=== PATIENT | male | born 1950 | race Caucasian/White ===

== ENCOUNTER 2016-04-26 10:09 | Inpatient (IN) | payer MEDICARE ==
--- NOTE | ~2016-04-26 | DS ---
Discharge Summary [facility] [address] [place]. [address] NAME: QUYNH ARAIZA : 50 STATUS : DIS IN PAT#: [id number] AGE: 66 ADM/REG DATE : 04/26/16 MR#: [id number] REPORT SERV DATE: 05/02/16 DICTATED BY: SCOOTER SIMMS DATE: 05/01/16 REPORT STATUS : Draft TRANSCRIBED BY: MODL DATE: 05/01/16 ADMISSION DATE: 04/26/2016 DISCHARGE DATE: 05/01/2016 DISCHARGE DIAGNOSES: 1. Left upper lobe pneumonia, currently resolved. 2. Chronic systolic congestive heart failure with an acute component, currently stable. 3. Atrial fibrillation. 4. Nonischemic cardiomyopathy. 5. An automatic implantable cardioverter defibrillator in the past. 6. Homelessness. 7. Persistent alcohol abuse, currently without delirium tremens. 8. Hypertension. 9. Peripheral neuropathy. CONSULTANTS DURING THIS HOSPITALIZATION: Yfn Cedeno M.D. of Cardiology. INVASIVE PROCEDURES DONE DURING THIS HOSPITALIZATION: None. BRIEF HISTORY OF PRESENT ILLNESS: The patient is a 66-year-old male who has been homeless, living in a hotel. He actually went to [place] initially, he was diagnosed with pneumonia and discharged with oral Levaquin. He presented to [facility] via ambulance with cough, sputum that had blood contained within it, chills, sweats, so he was admitted. For detailed history and physical exam, please see note dictated by Dr. Chelsea Villavicencio on 04/26/2016. HOSPITAL COURSE: After being admitted to the hospital, this patient was cared for by Dr. Loni Reyes and this patient was started on IV antibiotics. Blood cultures were done, which remained negative. For his alcohol abuse, he was given withdrawal prophylaxis and Cardiology was also consulted because of his nonischemic cardiomyopathy with ICD placed in [place]. We continued to monitor him. He continued to improve his overall lung functions. He is now off oxygen. Initially on the day of admission, he had an ABG with a pH of 7.47, pCO2 was 28, and PO2 was 67 that has since improved and he is now off oxygen. His lab work has remained fairly benign. His glucose is 113 today. His creatinine is 0.75 on the day of discharge. His white count has normalized to 5.6. His hemoglobin and hematocrit remained stable as well. Cardiology has recommended that he could be discharged from a medical standpoint, his medications were adjusted, and he will need bri medications from the hospital prior to discharge. This patient will also be seen by Case Management for arrangement of a place to live after being discharged from the hospital. DISCHARGE DISPOSITION: To the [facility]. DISCHARGE ACTIVITY: As tolerated. DISCHARGE DIET: Low-sodium, cardiac diet. DISCHARGE MEDICATIONS: Aspirin 162 mg once daily, digoxin 0.25 mg once daily, gabapentin 300 Discharge Summary [address] [address] NAME: QUYNH ARAIZA : 50 STATUS : DIS IN PAT#: [id number] AGE: 66 ADM/REG DATE : 04/26/16 MR#: [id number] REPORT SERV DATE: 05/02/16 DICTATED BY: SCOOTER SIMMS DATE: 05/01/16 REPORT STATUS : Draft TRANSCRIBED BY: JULIANN DATE: 05/01/16 mg p.o. twice daily, Coreg 6.25 mg twice daily, Omnicef 300 mg p.o. twice daily for two more days, multivitamins one tablet daily, Xarelto 20 mg once daily, lisinopril 5 mg once daily, torsemide 10 mg once daily, and iron 325 mg p.o. once daily. DISCHARGE FOLLOWUP: At [facility] in two to three weeks. More than 30 minutes spent planning this patient's discharge, reconciling medications, writing prescriptions, discussing the care with the patient, arranging proper discharge, and documenting this discharge. ROBERTO/JULIANN Scooter Simms M.D. / [id number] CC: Aryan Natarajan M.D.
--- NOTE | ~2016-04-26 | CN ---
Consultation Report [place] [id number] [facility]. [address] NAME: QUYNH BUNDY : 50 STATUS : ADM IN [facility]#: [id number] AGE: 66 ADM/REG DATE : 04/26/16 MR#: [id number] REPORT SERV DATE: 04/27/16 DICTATED BY: YFN GRANDA DATE: 04/27/16 REPORT STATUS : Draft TRANSCRIBED BY: MODL DATE: 04/27/16 CARDIOVASCULAR CONSULTATION DATE OF CONSULTATION: This cardiovascular consultation requested by Dr. Chelsea Villavicencio. INDICATION: Congestive heart failure. HISTORY OF PRESENT ILLNESS: Mr. Bundy is a 66-year-old man with a longstanding history of medical noncompliance, alcohol abuse, and homelessness. He evidently has a nonischemic cardiomyopathy and has previously been followed in [place] and at [facility]. He had an ICD placed by his report in [place] several years ago. He ran out of medications several weeks ago. He appears to have atrial fibrillation presumably chronic in addition to congestive heart failure in the setting of LV systolic dysfunction. He is admitted with worsening dyspnea, cough, possible pneumonia on chest x-ray, and elevated BNP of greater than 2000. PAST MEDICAL HISTORY: 1. Alcohol abuse. 2. Homelessness. 3. Medical noncompliance. 4. Presumed chronic atrial fibrillation. 5. Nonischemic cardiomyopathy. ALLERGIES: INCLUDE PENICILLIN. MEDICATIONS: Uncertain. It appears at one point he was on Xarelto perhaps, diltiazem, torsemide, and digoxin as well as an aspirin. He has not been taking any of these medicines for several weeks. SOCIAL HISTORY: He is homeless. He continues to drink alcohol. He does smoke cigarettes. FAMILY HISTORY: Family history is uncertain. REVIEW OF SYSTEMS: A complete review of systems was obtained, which is negative in detail except as mentioned above in the HPI. PHYSICAL EXAMINATION: VITAL SIGNS: Blood pressure 110/70, heart rate of 92 and irregular, respiratory rate of 14. GENERAL: Comfortable in no acute distress. HEENT: Anicteric. No xanthelasma. Lips without cyanosis. NECK: No JVD. Carotids 2+ and symmetric. No carotid bruits. LUNGS: CTA bilaterally. No wheezes or rhonchi. No accessory muscle use. Consultation Report [place] [address] [facility] [place]. [address] NAME: QUYNH BUNDY : 50 STATUS : ADM IN PAT#: [id number] AGE: 66 ADM/REG DATE : 04/26/16 MR#: [id number] REPORT SERV DATE: 04/27/16 DICTATED BY: YFN GRANDA DATE: 04/27/16 REPORT STATUS : Draft TRANSCRIBED BY: MODGertrude DATE: 04/27/16 COR: RRR. Normally placed PMI. Normal S1 and S2. No murmurs, rubs or gallops. ABD: Soft, nontender, nondistended. Normal bowel sounds. No abdominal bruits. EXT: No clubbing, cyanosis or edema 2+ and symmetric distal pulses. SKIN: Warm. Dry. No venous stasis changes. MS: No kyphosis. NEURO/PSYCH: Oriented x3. No anxiety or depression. DATA: EK-lead EKG shows underlying atrial fibrillation with ventricular pacing at 90 beats per minute. Laboratory studies: White count of 7.4, hematocrit of 40, creatinine of 1.15. BNP of 2173. Troponin of 0.04. IMPRESSION: This is a 66-year-old homeless man with a history of a nonischemic cardiomyopathy and defibrillator placed at outside facility, who presents with volume overload in the setting of acute on chronic systolic congestive heart failure, atrial fibrillation with rapid ventricular rate, possible pneumonia, bilateral pleural effusions. I have recommended IV Lasix diuresis. We will try to adjust his medications in-house and consider an echocardiogram and assessment of his defibrillator while in the hospital. Long- term prognosis is poor given his social situation and noncompliance. APURVA/UJLIANN Yfn Granda M.D. / [id number] CC: Loni Reyes M.D.
--- NOTE | ~2016-04-26 | HP ---
History And Physical [place] [id number] [facility] [place]. [address] NAME: QUYNH ARAIZA : 50 STATUS : ADM IN PAT#: [id number] AGE: 66 ADM/REG DATE : 04/26/16 MR#: [id number] REPORT SERV DATE: 04/26/16 DICTATED BY: BRUNO RIGGS DATE: 04/26/16 REPORT STATUS : Draft TRANSCRIBED BY: MODGertrude DATE: 04/26/16 DATE OF ADMISSION: 04/26/2016 CHIEF COMPLAINT: Shortness of breath. HISTORY OF PRESENT ILLNESS: The patient is a very pleasant 66-year-old white male. He states he has been sick since about Friday. He actually went to [place] yesterday. He was diagnosed with pneumonia and discharged with Levaquin. He is currently homeless, residing in a hotel. He states today he woke up in extremis. He could not breathe actually, had an ambulance called and arrived to [facility] Emergency Department. He denies chest pain, but he states he has had cough with sputum which had blood contained within it. He has not had chills or sweats or documented fever but he does not take his temperature. He states his shortness of breath was worse with lying flat and he just could not get his breath this morning. He received some diuresis in the ER with a rapid improvement and stabilization. He also received a Cardizem drip. He has been in and out of the hospital over many years. He was just in the hospital he states about 3 to 6 months ago with pneumonia. He drinks heavily sometimes 3 to 4 sixteen ounce beers plus a half pint whiskey. He has had alcohol withdrawal in the past but no delirium. He has been admitted to multiple different hospitals but it does not appear that he has been admitted here in the past. He has a history of an AICD and pacemaker but reports he had a cath which did not show any coronary artery disease. He does not recall the exact details of this. PAST MEDICAL HISTORY: 1. Nonischemic cardiomyopathy with unknown EF. 2. EtOH abuse. 3. Defibrillator pacemaker. 4. Cardiac arrest with defibrillator subsequently in place. 5. Atrial fibrillation, on chronic anticoagulation. 6. Hypertension. 7. Peripheral neuropathy. 8. Alcohol withdrawal. ALLERGIES: PENICILLIN. SOCIAL HISTORY: He does not smoke but he drinks 3 to 4 sixteen ounce beers a day and sometimes a half pint of whiskey. He states "he drinks too much". He is retired. He is homeless. PAST SURGICAL HISTORY: He has had multiple orthopedic surgeries but no open heart surgery. He has had an AICD and pacer and he has had no abdominal surgeries. HOME MEDICATIONS: Reviewed but he has not taken them in over a week. REVIEW OF SYSTEMS: Full 10-point review of systems obtained with pertinent positives mentioned in the HPI. History And Physical [address] [address] NAME: QUYNH ARAIZA : 50 STATUS : ADM IN [facility]#: [id number] AGE: 66 ADM/REG DATE : 04/26/16 MR#: [id number] REPORT SERV DATE: 04/26/16 DICTATED BY: BRUNO RIGGS DATE: 04/26/16 REPORT STATUS : Draft TRANSCRIBED BY: JULIANN DATE: 04/26/16 PHYSICAL EXAMINATION: VITAL SIGNS: Current vital signs are blood pressure 118/77, sats are 98%, pulse is 103, and his respiratory rate is currently 20. His temperature on admission was 98.1, heart rate on admission was 147. GENERAL: Well-developed white male, in no apparent distress. HEENT: With an obvious tanned appearance. HEENT: Normocephalic, atraumatic. Throat is clear. NECK: Supple. HEART: Irregular. LUNGS: He has crackles at the left base. He has an occasional rhonchorous breath sounds but otherwise he is clear. ABDOMEN: Soft, nontender, and nondistended. EXTREMITIES: Warm and dry. He has no peripheral edema. SKIN: Intact without rashes or lesions although he does have some telangiectasias scattered about. NEUROLOGIC: He is alert. He is oriented to person, place, and time. He does not have a tremor. He moves all four extremities symmetrically. LAB DATA: H and H are 13 and 39, white count 7.4, platelets 233, coags are normal. Flu swab is negative. ABG 7.47/28/. Lactate is 3.2. BNP is 2173. Chemistry panel: Sodium is 137, potassium 4.2, chloride 100, CO2 of 23, BUN and creatinine 17 and 1.15. Glucose 114. LFTs are normal. Troponin is 0.04. Mag is 2.1. TSH is 3.620. CTA of the chest shows no PE. Left upper lobe airspace disease consistent with pneumonia. Moderate right posterior pleural effusion and small left posterior pleural effusion with some compressive atelectasis and changes consistent with COPD. Chest x-ray shows a small right pleural effusion. Right lower lobe atelectasis in the left mid lung airspace disease. He also has an EKG consistent with atrial fibrillation with RVR. ASSESSMENT/PLAN: 1. Atrial fibrillation with RVR. Dramatic improvement with Cardizem drip. We will continue this, restart him on a p.o. rate slowing agent, I am going to give him metoprolol given that he has a history of congestive heart failure. We will start with Toprol-XL 25 daily. We will continue his Cardizem drip for now. We will continue his digoxin. He has not been taking it and this may be responsible for some of his RVR. Hopefully we can get him off the drip once he is started on the beta dawson. He needs his Xarelto; however, he has had some hemoptysis over the last 24 hours. I am going to hold his Xarelto overnight and likely restart it tomorrow if he does not have any additional hemoptysis. We will do two more sets of cardiac enzymes. Continue rate control measures. 2. Congestive heart failure exacerbation as evidenced by elevated cardiac BNP. Orthopnea, PND, and pleural effusions bilaterally likely secondary to noncompliance with medical regimen, atrial fibrillation with RVR uncontrolled rate likely exacerbated his heart failure. We would recommend diuresis, start him on a beta-dawson, and low-dose MORGAN inhibitor. Control his heart rate and attempt to diurese him. 3. Pneumonia diagnosed on CT. This is likely responsible for his hemoptysis. He has been sick for a few days. He has been on Levaquin however for two days and his white count is actually normal. His procalcitonin looks good although he does have an elevated History And Physical [address] [address] NAME: QUYNH ARAIZA : 50 STATUS : ADM IN [facility]#: [id number] AGE: 66 ADM/REG DATE : 04/26/16 MR#: [id number] REPORT SERV DATE: 04/26/16 DICTATED BY: BRUNO RIGGS DATE: 04/26/16 REPORT STATUS : Draft TRANSCRIBED BY: JULIANN DATE: 04/26/16 lactic acid. We would recommend treating him with antibiotics for community-acquired pneumonia to include Rocephin and azithromycin, but also cover him for aspiration since he has had some vomiting. He has a long-standing history also of alcohol abuse. We will culture his blood and sputum. Follow him clinically and go from there. 4. COPD. We will add some nebs to his regimen although he is not really wheezing today. I think in light of the pneumonia, we ought to treat him with bronchodilator therapy. 5. EtOH abuse. History of withdrawal. We will place him on the ETOH withdrawal protocol. We will provide IV thiamine and Ativan as needed and follow the CIWA scores. 6. History of nonischemic cardiomyopathy. Please see #1 with CHF. 7. History of defibrillator and pacemaker. 8. History of noncompliance. He is not compliant with his medical regimen. He says "someone "stole his medications. He needs to get back on his medications; if he had a more stable living environment, I suspect this would be easier. 9. Deep venous thrombosis prophylaxis. Hold off until we are sure that he is not bleeding plus he is on Xarelto. 10.Hemoptysis. See numbers above. Again, holding his Xarelto overnight likely due to pneumonia. We will do a PPD just for completeness. 11.Disposition pending above. MISHA/JULIANN Bruno Riggs M.D. / [id number] CC: Bruno Riggs M.D.
[2016-04-26 09:28] LABS: BASOPHILS 0.4 %; BASOPHILS ABSOLUTE 0.03 10/3/uL (0.0-0.16); EOSINOPHILS 0.1 %; EOSINOPHILS ABSOLUTE 0.01 10/3/uL (0.0-0.53); HEMATOCRIT 39.8 % (40.0-51.0); HEMOGLOBIN 13.3 g/dL (13.6-17.8); IMMATURE GRANULOCYTES 0.3 %; IMMATURE GRANULOCYTES ABSOLUTE 0.02 10/3/uL (0.0-0.11); LYMPHOCYTES 19.3 %; LYMPHOCYTES ABSOLUTE 1.42 10/3/uL (0.67-4.30); MANUAL DIFF NO %; MEAN CORPUS HGB CONC 33.4 g/dL (32.0-36.0); MEAN CORPUSCULAR HEMOGLOB 32.6 pg (26.0-34.0); MEAN CORPUSCULAR VOLUME 97.5 fL (80-100); MEAN PLATELET VOLUME 10.7 fL (9.2-13.0); MONOCYTES 12.6 %; MONOCYTES ABSOLUTE 0.93 10/3/uL (0.21-1.20); NEUTROPHILS 67.3 %; NEUTROPHILS ABSOLUTE 4.96 10/3/uL (2.02-8.40); PLATELET COUNT 233 10/3/uL (150-400); RBC DISTRIBUTION WIDTH 17.8 % (12.0-16.0); RED CELL COUNT 4.08 10/6/uL (4.7-6.1); WHITE BLOOD CELLS 7.4 10/3/uL (4.5-10.5)
[2016-04-26 09:36] LABS: INTERNATIONAL NORMAL RATI 1.7 UNITS (-); PROTIME (NOT ORD) 19.5 SEC (12.0-14.5)
[2016-04-26 09:38] LABS: INFLUENZA A SCREEN NEGATIVE (NEGATIVE); INFLUENZA B SCREEN NEGATIVE (NEGATIVE)
[2016-04-26 09:39] LABS: ALLENS TEST Pos; BE (BASE EXCESS) -2.4 MEQ/L (0 +/- 2.5); HCO3 (ACTUAL BICARBONATE) 19.9 MEQ/L (23-27); HEMOBLOGIN CONTENT 13.1 G/DL (14-18); INSTRUMENT SERIAL # 8087; METHEMOGLOBIN 0.3 % (0-3); O2 CONTENT 16.8 VOL% (18-24); OPERATOR ID 14335; PCO2 (CO2 TENSION) 28 MMHG (35-45); PO2 (O2 TENSION) 67 MMHG (79-93); SAMPLE Arterial; pH 7.47 (7.37-7.43)
[2016-04-26 09:48] LABS: LACTATE 3.2 MMOL/L (0.3-2.4)
[2016-04-26 09:50] LABS: CALCIUM, SERUM 8.5 MG/DL (8.5-10.4); CHEST PAIN PROFILE TAT 0 Hrs 28 Mins; CHLORIDE, SERUM 102 MMOL/L (96-112); POTASSIUM, SERUM 4.2 MMOL/L (3.5-5.3); SODIUM, SERUM 137 MMOL/L (135-148); TROPONIN I 0.04 NG/ML (<0.05)
[2016-04-26 09:52] LABS: BUN (BLOOD UREA NITROGEN) 17 MG/DL (6-23); CO2 (CARBON DIOXIDE) 23 MMOL/L (24-34); CREATININE 1.15 MG/DL (0.70-1.30); GFR AFRICAN AMERICAN 76 ML/MIN (>=60); GFR NON AFRICAN AMERICAN 66 ML/MIN (>=60); GLUCOSE, SERUM 114 MG/DL (60-99)
[~2016-04-26 10:09] MED LIST: CARDCD120 PO; DEMA10T PO; FERROUS SULF325 M1 PO; HALF81 PO; LAN25 PO; LEVAQUIN750 MG PO; NEUR300 PO; POTASSIUM; XARELTO20 MG PO
[2016-04-26 10:29] LABS: PROCALCITONIN 0.05 ng/mL (<0.5)
[2016-04-27 07:50] LABS: BASOPHILS 0 %; EOSINOPHILS 0 %; HEMATOCRIT 36.2 % (40.0-51.0); HEMOGLOBIN 12.4 g/dL (13.6-17.8); IMMATURE GRANULOCYTES 0.1 %; IMMATURE GRANULOCYTES ABSOLUTE 0.01 10/3/uL (0.0-0.11); LYMPHOCYTES 9.9 %; LYMPHOCYTES ABSOLUTE 0.82 10/3/uL (0.67-4.30); MEAN CORPUS HGB CONC 34.3 g/dL (32.0-36.0); MEAN CORPUSCULAR HEMOGLOB 32.7 pg (26.0-34.0); MEAN CORPUSCULAR VOLUME 95.5 fL (80-100); MEAN PLATELET VOLUME 10.6 fL (9.2-13.0); MONOCYTES 11.7 %; MONOCYTES ABSOLUTE 0.97 10/3/uL (0.21-1.20); NEUTROPHILS 78.3 %; NEUTROPHILS ABSOLUTE 6.49 10/3/uL (2.02-8.40); PLATELET COUNT 220 10/3/uL (150-400); RBC DISTRIBUTION WIDTH 17.9 % (12.0-16.0); RED CELL COUNT 3.79 10/6/uL (4.7-6.1); WHITE BLOOD CELLS 8.3 10/3/uL (4.5-10.5)
[2016-04-27 07:51] LABS: MANUAL DIFF NO %
[2016-04-27 08:14] LABS: BUN (BLOOD UREA NITROGEN) 16 MG/DL (6-23); CALCIUM, SERUM 8.2 MG/DL (8.5-10.4); CHLORIDE, SERUM 104 MMOL/L (96-112); CO2 (CARBON DIOXIDE) 25 MMOL/L (24-34); CREATININE 0.84 MG/DL (0.70-1.30); GFR AFRICAN AMERICAN 106 ML/MIN (>=60); GFR NON AFRICAN AMERICAN 91 ML/MIN (>=60); GLUCOSE, SERUM 133 MG/DL (60-99); POTASSIUM, SERUM 3.7 MMOL/L (3.5-5.3); SODIUM, SERUM 139 MMOL/L (135-148); TROPONIN I 0.04 NG/ML (<0.05)
[2016-04-27 13:27] LABS: DIGOXIN < 0.1 NG/ML (0.8-2.0); FOLATE 18.3 NG/ML (>5.2)
[2016-04-28 05:24] LABS: BASOPHILS 0.4 %; BASOPHILS ABSOLUTE 0.03 10/3/uL (0.0-0.16); EOSINOPHILS 0.7 %; EOSINOPHILS ABSOLUTE 0.05 10/3/uL (0.0-0.53); HEMATOCRIT 38.8 % (40.0-51.0); HEMOGLOBIN 12.6 g/dL (13.6-17.8); LYMPHOCYTES 24.2 %; LYMPHOCYTES ABSOLUTE 1.67 10/3/uL (0.67-4.30); MANUAL DIFF NO %; MEAN CORPUS HGB CONC 32.5 g/dL (32.0-36.0); MEAN CORPUSCULAR HEMOGLOB 31.7 pg (26.0-34.0); MEAN CORPUSCULAR VOLUME 97.7 fL (80-100); MEAN PLATELET VOLUME 10.7 fL (9.2-13.0); MONOCYTES 10.4 %; MONOCYTES ABSOLUTE 0.72 10/3/uL (0.21-1.20); NEUTROPHILS 64.3 %; NEUTROPHILS ABSOLUTE 4.42 10/3/uL (2.02-8.40); PLATELET COUNT 192 10/3/uL (150-400); RBC DISTRIBUTION WIDTH 17.9 % (12.0-16.0); RED CELL COUNT 3.97 10/6/uL (4.7-6.1); WHITE BLOOD CELLS 6.9 10/3/uL (4.5-10.5)
[2016-04-28 05:40] LABS: ALBUMIN 2.9 G/DL (3.5-5.0); ALKALINE PHOSPHATASE 91 U/L (45-117); CALCIUM, SERUM 7.9 MG/DL (8.5-10.4); CHLORIDE, SERUM 103 MMOL/L (96-112); CO2 (CARBON DIOXIDE) 28 MMOL/L (24-34); CREATININE 0.86 MG/DL (0.70-1.30); GFR AFRICAN AMERICAN 105 ML/MIN (>=60); GFR NON AFRICAN AMERICAN 90 ML/MIN (>=60); GLOBULIN 2.8 G/DL (2.5-4.1); POTASSIUM, SERUM 3.5 MMOL/L (3.5-5.3); SGOT(AST) 108 U/L (5-40); SGPT(ALT) 93 U/L (5-65); SODIUM, SERUM 141 MMOL/L (135-148); TOTAL BILIRUBIN 0.7 MG/DL (0-1.2); TOTAL PROTEIN 5.7 G/DL (6.0-8.5)
[2016-04-28 05:43] LABS: BUN (BLOOD UREA NITROGEN) 21 MG/DL (6-23); GLUCOSE, SERUM 105 MG/DL (60-99)
[2016-04-28 14:58] LABS: ASCORBIC ACID (UR NOT ORDER) NEG (NEG); BILIRUBIN, URINE NEGATIVE (NEG); KETONE, URINE NEGATIVE (NEG); LEUKOCYTE ESTERASE(NOT OR NEG (NEG); WBC (NOT ORDERED) (RFLEX) < 1 (0-5)
[2016-04-29] MEDS ORDERED: THERGRANM PO (08:09)
[2016-04-29] MEDS ORDERED: B1100 PO (08:12)
[2016-04-29 08:54] LABS: HEPATITIS B SURFACE ANTIGEN NON-REACTIVE (NON-REACT)
[2016-04-29 09:11] LABS: HEPATITIS C ANTIBODY NON-REACTIVE (NON-REACT)
[2016-04-29 09:12] LABS: HEPATITIS B CORE AB IGM NON-REACTIVE (NON-REAC)
[2016-04-29 09:13] LABS: HEP A ANTIBODY IGM NON-REACTIVE (NON-REACT)
[2016-04-29 10:40] LABS: BASOPHILS 1.1 %; BASOPHILS ABSOLUTE 0.06 10/3/uL (0.0-0.16); EOSINOPHILS 3.2 %; EOSINOPHILS ABSOLUTE 0.17 10/3/uL (0.0-0.53); HEMOGLOBIN 14.6 g/dL (13.6-17.8); IMMATURE GRANULOCYTES 0.2 %; IMMATURE GRANULOCYTES ABSOLUTE 0.01 10/3/uL (0.0-0.11); LYMPHOCYTES 27.7 %; LYMPHOCYTES ABSOLUTE 1.48 10/3/uL (0.67-4.30); MANUAL DIFF NO %; MEAN CORPUS HGB CONC 33.2 g/dL (32.0-36.0); MEAN CORPUSCULAR HEMOGLOB 32.4 pg (26.0-34.0); MEAN CORPUSCULAR VOLUME 97.8 fL (80-100); MEAN PLATELET VOLUME 10.6 fL (9.2-13.0); MONOCYTES ABSOLUTE 0.48 10/3/uL (0.21-1.20); NEUTROPHILS 58.8 %; NEUTROPHILS ABSOLUTE 3.15 10/3/uL (2.02-8.40); PLATELET COUNT 202 10/3/uL (150-400); RBC DISTRIBUTION WIDTH 17.3 % (12.0-16.0); WHITE BLOOD CELLS 5.4 10/3/uL (4.5-10.5)
[2016-04-29 11:20] LABS: ALBUMIN 3.1 G/DL (3.5-5.0); ALKALINE PHOSPHATASE 89 U/L (45-117); BUN (BLOOD UREA NITROGEN) 22 MG/DL (6-23); CALCIUM, SERUM 8.4 MG/DL (8.5-10.4); CHLORIDE, SERUM 101 MMOL/L (96-112); CO2 (CARBON DIOXIDE) 30 MMOL/L (24-34); GFR AFRICAN AMERICAN 103 ML/MIN (>=60); GFR NON AFRICAN AMERICAN 89 ML/MIN (>=60); GLOBULIN 3.1 G/DL (2.5-4.1); POTASSIUM, SERUM 3.6 MMOL/L (3.5-5.3); SGOT(AST) 105 U/L (5-40); SGPT(ALT) 98 U/L (5-65); SODIUM, SERUM 140 MMOL/L (135-148); TOTAL BILIRUBIN 0.8 MG/DL (0-1.2); TOTAL PROTEIN 6.2 G/DL (6.0-8.5)
[2016-04-29 11:21] LABS: GLUCOSE, SERUM 143 MG/DL (60-99)
[2016-04-29 12:49] LABS: BASOPHILS 0.8 %; BASOPHILS ABSOLUTE 0.05 10/3/uL (0.0-0.16); EOSINOPHILS 3.2 %; EOSINOPHILS ABSOLUTE 0.21 10/3/uL (0.0-0.53); HEMATOCRIT 41.4 % (40.0-51.0); HEMOGLOBIN 13.9 g/dL (13.6-17.8); IMMATURE GRANULOCYTES 0.2 %; IMMATURE GRANULOCYTES ABSOLUTE 0.01 10/3/uL (0.0-0.11); LYMPHOCYTES 21.6 %; LYMPHOCYTES ABSOLUTE 1.43 10/3/uL (0.67-4.30); MEAN CORPUS HGB CONC 33.6 g/dL (32.0-36.0); MEAN CORPUSCULAR HEMOGLOB 32.8 pg (26.0-34.0); MEAN CORPUSCULAR VOLUME 97.6 fL (80-100); MEAN PLATELET VOLUME 10.1 fL (9.2-13.0); MONOCYTES 13.6 %; NEUTROPHILS 60.6 %; NEUTROPHILS ABSOLUTE 4.02 10/3/uL (2.02-8.40); PLATELET COUNT 229 10/3/uL (150-400); RBC DISTRIBUTION WIDTH 17.2 % (12.0-16.0); RED CELL COUNT 4.24 10/6/uL (4.7-6.1); WHITE BLOOD CELLS 6.6 10/3/uL (4.5-10.5)
[2016-04-29 12:50] LABS: MANUAL DIFF NO %
[2016-04-29 13:04] LABS: A/G RATIO 0.9 (0.7-1.9); ALBUMIN 2.8 G/DL (3.5-5.0); ALKALINE PHOSPHATASE 88 U/L (45-117); BUN (BLOOD UREA NITROGEN) 22 MG/DL (6-23); CHLORIDE, SERUM 103 MMOL/L (96-112); CO2 (CARBON DIOXIDE) 33 MMOL/L (24-34); CREATININE 0.79 MG/DL (0.70-1.30); GFR AFRICAN AMERICAN 108 ML/MIN (>=60); GFR NON AFRICAN AMERICAN 94 ML/MIN (>=60); GLUCOSE, SERUM 96 MG/DL (60-99); POTASSIUM, SERUM 3.8 MMOL/L (3.5-5.3); SGOT(AST) 96 U/L (5-40); SGPT(ALT) 92 U/L (5-65); SODIUM, SERUM 142 MMOL/L (135-148); TOTAL BILIRUBIN 0.7 MG/DL (0-1.2); TOTAL PROTEIN 5.8 G/DL (6.0-8.5)
[2016-04-30 04:28] LABS: BASOPHILS 0.7 %; BASOPHILS ABSOLUTE 0.04 10/3/uL (0.0-0.16); EOSINOPHILS ABSOLUTE 0.28 10/3/uL (0.0-0.53); HEMATOCRIT 43.6 % (40.0-51.0); HEMOGLOBIN 14.5 g/dL (13.6-17.8); LYMPHOCYTES 34.8 %; LYMPHOCYTES ABSOLUTE 1.95 10/3/uL (0.67-4.30); MEAN CORPUS HGB CONC 33.3 g/dL (32.0-36.0); MEAN CORPUSCULAR HEMOGLOB 32.5 pg (26.0-34.0); MEAN CORPUSCULAR VOLUME 97.8 fL (80-100); MEAN PLATELET VOLUME 10.4 fL (9.2-13.0); MONOCYTES 12.3 %; MONOCYTES ABSOLUTE 0.69 10/3/uL (0.21-1.20); NEUTROPHILS 47.2 %; NEUTROPHILS ABSOLUTE 2.65 10/3/uL (2.02-8.40); PLATELET COUNT 248 10/3/uL (150-400); RBC DISTRIBUTION WIDTH 16.9 % (12.0-16.0); RED CELL COUNT 4.46 10/6/uL (4.7-6.1); WHITE BLOOD CELLS 5.6 10/3/uL (4.5-10.5)
[2016-04-30 04:29] LABS: MANUAL DIFF NO %
[2016-04-30 04:40] LABS: ALBUMIN 2.9 G/DL (3.5-5.0); ALKALINE PHOSPHATASE 86 U/L (45-117); BUN (BLOOD UREA NITROGEN) 20 MG/DL (6-23); CALCIUM, SERUM 8.4 MG/DL (8.5-10.4); CHLORIDE, SERUM 102 MMOL/L (96-112); CO2 (CARBON DIOXIDE) 32 MMOL/L (24-34); CREATININE 0.75 MG/DL (0.70-1.30); DIRECT BILIRUBIN 0.2 MG/DL (0.0-0.4); GFR AFRICAN AMERICAN 111 ML/MIN (>=60); GFR NON AFRICAN AMERICAN 96 ML/MIN (>=60); GLUCOSE, SERUM 113 MG/DL (60-99); INDIRECT BILIRUBIN(NOT ORDER) 0.5 MG/DL (0.1-0.9); POTASSIUM, SERUM 4.2 MMOL/L (3.5-5.3); SGOT(AST) 94 U/L (5-40); SGPT(ALT) 93 U/L (5-65); SODIUM, SERUM 141 MMOL/L (135-148); TOTAL BILIRUBIN 0.7 MG/DL (0-1.2); TOTAL PROTEIN 5.8 G/DL (6.0-8.5)
[2016-05-01] MEDS ORDERED: OMNICEF300 PO (13:11)
[2016-05-01] MEDS ORDERED: COREG6 PO (13:11)
[2016-05-01] MEDS ORDERED: PRIN5 PO (13:12)
[2016-09-05] MEDS ORDERED: COREG6 PO (22:48)
[2016-09-05] MEDS ORDERED: ASAB PO (22:48)
[2016-09-05] MEDS ORDERED: MULTIVIT/MIN PO (22:48)
[2016-09-05] MEDS ORDERED: DSS PO (22:49)
[2016-09-05] MEDS ORDERED: LAN25 PO (22:49)
[2016-09-05] MEDS ORDERED: NEUR300 PO (22:50)
[2016-09-05] MEDS ORDERED: NORCO1 TA1 PO (22:50)
[2016-09-05] MEDS ORDERED: CONSTULOSE PO (22:50)
[2016-09-05] MEDS ORDERED: PRIN5 PO (22:55)
[2016-09-05] MEDS ORDERED: ATV.5 PO (22:56)
[2016-09-05] MEDS ORDERED: MICRO-K10 MEQ PO (22:57)
[2016-09-05] MEDS ORDERED: DEMA10T PO (23:01)
[2016-09-05] MEDS ORDERED: XARELTO20 MG PO (23:18)
[2016-09-05] MEDS ORDERED: MSCONT15 PO (23:21)
== END 2016-05-01 14:54 | disposition home or self-care (01) | DRG 291 ==
LOC: ER 10:09 → 6NO 11:30
PROVIDERS: Hospitalist; Internal Medicine
PROC: 4B02XTZ Measurement of Cardiac Defibrillator, External Approach (ICD-10-PCS; principal; 2016-04-30)
DX: I50.23 Acute on chronic systolic (congestive) heart failure (principal); J18.9 Pneumonia, unspecified organism; I48.2 Chronic atrial fibrillation; I42.9 Cardiomyopathy, unspecified; F10.10 Alcohol abuse, uncomplicated; G62.9 Polyneuropathy, unspecified; Z95.810 Presence of automatic (implantable) cardiac defibrillator; Z91.19 Patient's noncompliance with other medical treatment and regimen; Z59.0 Homelessness; Z79.82 Long term (current) use of aspirin
CPT/HCPCS: 36600; 71010; 71275; 76705; 80048; 80053; 80074; 80076; 80162; 81001; 82607; 82746; 82805; 83036; 83605; 83735; 83880; 84145; 84439; 84443; 84484; 85025; 85610; 85730; 87040; 87070; 87150; 87205; 87449; 87804; 93005; 93288; 93306; 94640; 96365; 96366; 96375; 97161-GP; 99291; A9270-GY; G8978-CJ-GP; G8980-CJ-GP; J0456; J1160; J2930; J3411; Q9967

== ENCOUNTER 2016-07-14 01:09 | Inpatient (IN) | payer MEDICARE, OTHER ==
--- NOTE | ~2016-07-14 | HP ---
History And Physical [address] [place]. [address] NAME: QUYNH ARAIZA : 50 STATUS : ADM IN [facility]#: [id number] AGE: 66 ADM/REG DATE : 07/14/16 MR#: [id number] REPORT SERV DATE: 07/14/16 DICTATED BY: ARIANE NARANJO DATE: 07/14/16 REPORT STATUS : Draft TRANSCRIBED BY: MODL DATE: 07/14/16 DATE OF ADMISSION: 07/14/2016 CHIEF COMPLAINT: A 66-year-old male presenting with increasing shortness of breath. HISTORY OF PRESENT ILLNESS: The patient's history was obtained through careful interview with the patient, coupled with review of [facility] medical records. The patient states that he began to feel ill around 07/08/2016. He describes debilitating dyspnea on exertion but also orthopnea, paroxysmal nocturnal dyspnea, and a feeling of gasping for breath at night. He has noticed some increasing lower extremity edema but also some swelling in his abdomen. His main pain complaint has been myalgias and muscle cramping and aching "all over." He also describes chest discomfort earlier this week that has now resolved but it was in the middle of his chest without radiation, an aching quality, 6/10 severity. He has felt lethargic. He has had a nonproductive cough. No fevers or chills. He has had nausea, but no vomiting. REVIEW OF SYSTEMS: Otherwise, a 14-point review of systems was obtained and was negative. PAST MEDICAL HISTORY: 1. Pacer/AICD placement. 2. Hypertension. 3. Anxiety and depression. 4. Atrial fibrillation. 5. Systolic congestive heart failure, nonischemic cardiomyopathy. Ejection fraction 20%. 6. Alcoholism. 7. Neuropathy. 8. Pneumonia April 2016. 9. COPD by CT scan. PAST SURGICAL HISTORY: 1. Pacer/AICD placement. 2. Knee surgery. 3. Hip surgery. ALLERGIES: PENICILLIN. SOCIAL HISTORY: No tobacco abuse. Drinks occasional beer and whiskey and has been alcoholic but quit about a week ago. He has been staying at a friend's house but has suffered from homelessness. He has four children. He occasionally smokes marijuana. History And Physical [address] [address] NAME: QUYNH ARAIZA : 50 STATUS : ADM IN PAT#: [id number] AGE: 66 ADM/REG DATE : 07/14/16 MR#: [id number] REPORT SERV DATE: 07/14/16 DICTATED BY: ARIANE NARANJO DATE: 07/14/16 REPORT STATUS : Draft TRANSCRIBED BY: JULIANN DATE: 07/14/16 FAMILY HISTORY: Significant for heart disease. CURRENT MEDICATIONS: Include aspirin 162 mg p.o. daily, Coreg 6.25 mg p.o. b.i.d., digoxin 0.25 mg p.o. daily, iron supplement, Neurontin 300 mg p.o. b.i.d., lisinopril 5 mg p.o. daily, multivitamin, Xarelto 20 mg at bedtime, and torsemide 10 mg p.o. daily. PHYSICAL EXAMINATION: VITAL SIGNS: Temperature 97.8, pulse 92, blood pressure 94/79, respiratory rate 16, and O2 saturation 88% on room air. GENERAL: An ill-appearing male, in evidence of distress secondary to shortness of breath. HEENT: Pupils are equal, round, and reactive to light. No conjunctival pallor. No scleral icterus. Nares are patent. Oropharynx is clear of obstruction. Moist mucous membranes. NECK: Trachea midline. No thyromegaly. LYMPH: No cervical lymphadenopathy. No supraclavicular lymphadenopathy. RESPIRATORY: The patient has wet rales through about the mid lung guadarrama symmetrically. No wheezes. No rhonchi. The patient has a labored respiratory effort. CARDIOVASCULAR: Irregularly irregular rhythm. No murmurs, rubs, or gallops. The patient does have a minimally pitting edema around his ankles and the pedal aspect of his feet symmetrically. ABDOMEN: Abdomen is quite distended by examination with no tympanic resonance on percussion, nontender through. No hepatosplenomegaly. DERMATOLOGICAL: Warm and dry extremities. No pallor, no cyanosis. PSYCHIATRIC: Normal affect. Good mood. Alert and oriented x3. LABORATORY DATA: Brain natriuretic peptide 2409, albumin 2.9. INR 1.6, total bilirubin 1.5, white blood cell count 7.4, hemoglobin 12, hematocrit 36, platelets 127. Sodium 145, potassium 3.9, chloride 111, bicarb 24, BUN 16, creatinine 0.94, and glucose 112. STUDIES: 1. Chest x-ray by my own evaluation shows diffuse pulmonary edema, bilateral pleural effusions, and cardiomegaly. 2. EKG by my own evaluation shows atrial fibrillation, T-wave inversions in leads V3 through V6. ASSESSMENT AND PLAN: 1. Systolic congestive heart failure, nonischemic cardiomyopathy, ejection fraction 20%. Place on IV Lasix, hold beta-dawson and MORGAN inhibitor secondary to hypotension. 2. Hypoxic respiratory failure. Provide supportive care. 3. Chronic obstructive pulmonary disease. Place on Duo nebulizers. 4. Alcoholism but has been abstinent for 1 week. 5. Atrial fibrillation. Check telemetry. Continue Xarelto. Check digoxin level. [facility] History And Physical [address] [address] NAME: QUYNH ARAIZA : 50 STATUS : ADM IN [facility]#: [id number] AGE: 66 ADM/REG DATE : 07/14/16 MR#: [id number] REPORT SERV DATE: 07/14/16 DICTATED BY: ARIANE NARANJO DATE: 07/14/16 REPORT STATUS : Draft TRANSCRIBED BY: MODGertrude DATE: 07/14/16 Ariane Naranjo M.D. / [id number] CC: Aryan Ness M.D.
--- NOTE | ~2016-07-14 | DS ---
Discharge Summary [facility] [address] [place]. [address] NAME: QUYNH ARAIZA : 50 STATUS : DIS IN PAT#: [id number] AGE: 66 ADM/REG DATE : 07/14/16 MR#: [id number] REPORT SERV DATE: 07/22/16 DICTATED BY: JR. DENNIS WILLIAM JOHN DATE: 07/18/16 REPORT STATUS : Draft TRANSCRIBED BY: MODGertrude DATE: 07/18/16 ADMISSION DATE: 07/14/2016 DISCHARGE DATE: 07/18/2016 DISCHARGE DIAGNOSES: Include: 1. Esofk-dn-hjcwawu systolic heart failure with ejection fraction of 15% to 20%. 2. Alcoholism. 3. Chronic obstructive pulmonary disease. 4. Atrial fibrillation. 5. Acute hypoxic respiratory failure, now on room air. 6. Homeless. OPERATIONS/PROCEDURES AND TREATMENTS: Include: 1. Chest x-ray done, 07/14/2016, which showed AICD, stable cardiomegaly and pulmonary vascular congestion with interstitial edema. 2. Repeat chest x-ray done, 07/16/2016, which showed pulmonary venous hypertension, improved considerably from prior study. DISCHARGE MEDICATIONS: Include: 1. Aspirin 81 mg orally daily. 2. Coreg 3.125 mg orally twice a day. 3. Digoxin 0.25 mg orally daily. 4. Ferrous sulfate 300 mg orally daily. 5. Lasix 20 mg orally twice a day. 6. Neurontin 300 mg twice a day. 7. Multivitamin one tablet orally daily. 8. Potassium 20 mEq daily. 9. Xarelto 20 mg orally daily. 10.Thiamine 100 mg orally daily. HOSPITAL COURSE: The patient is a 66-year-old male with known systolic heart failure, presented to the emergency room on 07/14/2016 with increased shortness of breath. The patient says he began feeling ill about 07/08/2016 with increased dyspnea on exertion, paroxysmal nocturnal dyspnea, and feeling of gasping for air at night. He noticed increased swelling in his legs as well as some in his abdomen and also complaint of cramping "all over." On initial exam, his temperature was 97.8, heart rate 92, respiratory rate 16, blood pressure 94/79. He was ill-appearing, was short of breath with some respiratory distress. Lung exam had wet rales in about the mid lung guadarrama bilaterally without wheezes and with use of accessary muscles. Cardiovascular exam showed an irregularly irregular rhythm without murmur, gallop, or rub. There was minimal pitting edema around the ankles. Initial laboratory showed BNP of 2409, INR was 1.6, total bilirubin was 1.5, BUN 16, creatinine 0.9. Chest x-ray as detailed above. EKG showed atrial fibrillation with T inversion in leads V3 to V6. The patient was admitted to [address] [place] [address] for exacerbation of systolic heart failure. Echocardiogram from previous study was reviewed showing ejection fraction in the high teens Discharge Summary [facility] [address] [place] [id number] NAME: QUYNH ARAIZA : 50 STATUS : DIS IN PAT#: [id number] AGE: 66 ADM/REG DATE : 07/14/16 MR#: [id number] REPORT SERV DATE: 07/22/16 DICTATED BY: JR. DENNIS WILLIAM JOHN DATE: 07/18/16 REPORT STATUS : Draft TRANSCRIBED BY: JULIANN DATE: 07/18/16 with marked left atrial dilation, mild left ventricular hypertrophy, moderate compromise of right ventricular function, mild aortic regurgitation, and moderate mitral regurgitation. The patient was diuresed with Lasix 40 mg IV every eight hours and improves symptomatically. Follow up chest x-ray showed improvement in venous engorgement. The patient's Lasix was changed to oral. Unfortunately, his blood pressure would not tolerate beta blockade or MORGAN inhibitor. The patient's oxygen was slowly weaned down and the patient is on room air by discharge. The patient is somewhat weak and requests rehabilitation. He will be evaluated for rehabilitation and if accepted, will be discharged to rehabilitation today. DISCHARGE DIET: Two grams sodium, 1 L fluid restriction. ACTIVITY: As tolerated. For discharge exam and laboratory, please see daily progress note. This discharge took 40 minutes for patient encounter, coordination of care, and documentation. ADDENDUM The patient was evaluated by [facility] and was declined for rehabilitation. I have discussed this with the patient. The plan is to discharge the patient either home today or to rehab today if a facility will accept. The patient understands the plan. No significant events occurred overnight. If the patient does go home, his primary care provider is Dr. Robertson. Plan would be to follow up with Dr. Robertson in one week as well as Cardiology, Dr. Yfn Cedeno in two to four weeks. This discharge took greater than 30 minutes for patient encounter, coordination of care, and documentation including yesterday's efforts at discharge. DICTATED BY: Yfn Dennis Jr, MD WJF/JULIANN Yfn Dennis Jr, MD / [id number] / [id number] CC: Yfn Dennis Jr, MD
[~2016-07-14 01:09] MED LIST changes: +B1100 PO; +COREG6 PO; +OMNICEF300 PO; +PRIN5 PO; +THERGRANM PO
[2016-07-14 01:25] LABS: BASOPHILS 0.4 %; BASOPHILS ABSOLUTE 0.03 10/3/uL (0.0-0.16); EOSINOPHILS 0.4 %; EOSINOPHILS ABSOLUTE 0.03 10/3/uL (0.0-0.53); HEMOGLOBIN 11.8 g/dL (13.6-17.8); IMMATURE GRANULOCYTES 0.1 %; IMMATURE GRANULOCYTES ABSOLUTE 0.01 10/3/uL (0.0-0.11); LYMPHOCYTES 15.9 %; LYMPHOCYTES ABSOLUTE 1.18 10/3/uL (0.67-4.30); MEAN CORPUS HGB CONC 32.8 g/dL (32.0-36.0); MEAN CORPUSCULAR HEMOGLOB 32.2 pg (26.0-34.0); MEAN PLATELET VOLUME 11.7 fL (9.2-13.0); MONOCYTES 12.5 %; MONOCYTES ABSOLUTE 0.93 10/3/uL (0.21-1.20); NEUTROPHILS 70.7 %; NEUTROPHILS ABSOLUTE 5.25 10/3/uL (2.02-8.40); PLATELET COUNT 127 10/3/uL (150-400); RBC DISTRIBUTION WIDTH 17.8 % (12.0-16.0); RED CELL COUNT 3.66 10/6/uL (4.7-6.1); WHITE BLOOD CELLS 7.4 10/3/uL (4.5-10.5)
[2016-07-14 01:29] LABS: MANUAL DIFF NO %; MEAN CORPUSCULAR VOLUME 98.4 fL (80-100)
[2016-07-14 01:37] LABS: INTERNATIONAL NORMAL RATI 1.6 UNITS (-); PARTIAL THROMBO TIME 32.2 SEC (22.5-37.2)
[2016-07-14 01:43] LABS: ALBUMIN 2.9 G/DL (3.5-5.0); ALKALINE PHOSPHATASE 91 U/L (45-117); BUN (BLOOD UREA NITROGEN) 16 MG/DL (6-23); CALCIUM, SERUM 8.3 MG/DL (8.5-10.4); CHEST PAIN PROFILE TAT 0 Hrs 22 Mins; CHLORIDE, SERUM 111 MMOL/L (96-112); CO2 (CARBON DIOXIDE) 24 MMOL/L (24-34); CREATININE 0.94 MG/DL (0.70-1.30); DIRECT BILIRUBIN 0.5 MG/DL (0.0-0.4); GFR AFRICAN AMERICAN 98 ML/MIN (>=60); GFR NON AFRICAN AMERICAN 84 ML/MIN (>=60); GLUCOSE, SERUM 112 MG/DL (60-99); POTASSIUM, SERUM 3.9 MMOL/L (3.5-5.3); SGOT(AST) 27 U/L (5-40); SGPT(ALT) 24 U/L (5-65); SODIUM, SERUM 145 MMOL/L (135-148); TOTAL BILIRUBIN 1.5 MG/DL (0-1.2); TOTAL PROTEIN 5.8 G/DL (6.0-8.5); TROPONIN I 0.04 NG/ML (<0.05)
[2016-07-14 11:31] LABS: BASOPHILS 0.3 %; BASOPHILS ABSOLUTE 0.02 10/3/uL (0.0-0.16); EOSINOPHILS 0.3 %; EOSINOPHILS ABSOLUTE 0.02 10/3/uL (0.0-0.53); HEMATOCRIT 36.1 % (40.0-51.0); HEMOGLOBIN 12.1 g/dL (13.6-17.8); IMMATURE GRANULOCYTES 0.1 %; IMMATURE GRANULOCYTES ABSOLUTE 0.01 10/3/uL (0.0-0.11); LYMPHOCYTES 16.5 %; LYMPHOCYTES ABSOLUTE 1.29 10/3/uL (0.67-4.30); MEAN CORPUS HGB CONC 33.5 g/dL (32.0-36.0); MEAN CORPUSCULAR HEMOGLOB 32.7 pg (26.0-34.0); MEAN CORPUSCULAR VOLUME 97.6 fL (80-100); MEAN PLATELET VOLUME 11.2 fL (9.2-13.0); MONOCYTES 10.2 %; NEUTROPHILS 72.6 %; NEUTROPHILS ABSOLUTE 5.69 10/3/uL (2.02-8.40); PLATELET COUNT 122 10/3/uL (150-400); RBC DISTRIBUTION WIDTH 17.5 % (12.0-16.0); WHITE BLOOD CELLS 7.8 10/3/uL (4.5-10.5)
[2016-07-14 11:33] LABS: MANUAL DIFF NO %
[2016-07-14 11:38] LABS: INTERNATIONAL NORMAL RATI 3.2 UNITS (-); PARTIAL THROMBO TIME 45.3 SEC (22.5-37.2)
[2016-07-14 11:41] LABS: PROTIME (NOT ORD) 32.2 SEC (12.0-14.5)
[2016-07-14 11:52] LABS: ALBUMIN 2.9 G/DL (3.5-5.0); ALKALINE PHOSPHATASE 84 U/L (45-117); BUN (BLOOD UREA NITROGEN) 14 MG/DL (6-23); CALCIUM, SERUM 8.3 MG/DL (8.5-10.4); CHLORIDE, SERUM 111 MMOL/L (96-112); CO2 (CARBON DIOXIDE) 22 MMOL/L (24-34); CPK 30 U/L (0-200); CREATININE 0.88 MG/DL (0.70-1.30); GFR AFRICAN AMERICAN 104 ML/MIN (>=60); GFR NON AFRICAN AMERICAN 90 ML/MIN (>=60); GLOBULIN 2.9 G/DL (2.5-4.1); GLUCOSE, SERUM 138 MG/DL (60-99); POTASSIUM, SERUM 3.5 MMOL/L (3.5-5.3); SGOT(AST) 32 U/L (5-40); SGPT(ALT) 28 U/L (5-65); SODIUM, SERUM 135 MMOL/L (135-148); TOTAL BILIRUBIN 1.7 MG/DL (0-1.2); TOTAL PROTEIN 5.8 G/DL (6.0-8.5); TROPONIN I 0.04 NG/ML (<0.05)
[2016-07-15 03:47] LABS: BASOPHILS 0.3 %; BASOPHILS ABSOLUTE 0.02 10/3/uL (0.0-0.16); EOSINOPHILS 0.7 %; EOSINOPHILS ABSOLUTE 0.05 10/3/uL (0.0-0.53); HEMATOCRIT 34.3 % (40.0-51.0); HEMOGLOBIN 11.4 g/dL (13.6-17.8); IMMATURE GRANULOCYTES 0.1 %; IMMATURE GRANULOCYTES ABSOLUTE 0.01 10/3/uL (0.0-0.11); LYMPHOCYTES 19.6 %; LYMPHOCYTES ABSOLUTE 1.43 10/3/uL (0.67-4.30); MEAN CORPUS HGB CONC 33.2 g/dL (32.0-36.0); MEAN CORPUSCULAR HEMOGLOB 32.7 pg (26.0-34.0); MEAN CORPUSCULAR VOLUME 98.3 fL (80-100); MEAN PLATELET VOLUME 11.9 fL (9.2-13.0); MONOCYTES 11.5 %; MONOCYTES ABSOLUTE 0.84 10/3/uL (0.21-1.20); NEUTROPHILS 67.8 %; NEUTROPHILS ABSOLUTE 4.96 10/3/uL (2.02-8.40); PLATELET COUNT 116 10/3/uL (150-400); RBC DISTRIBUTION WIDTH 17.6 % (12.0-16.0); RED CELL COUNT 3.49 10/6/uL (4.7-6.1); WHITE BLOOD CELLS 7.3 10/3/uL (4.5-10.5)
[2016-07-15 03:51] LABS: MANUAL DIFF NO %
[2016-07-15 04:07] LABS: BUN (BLOOD UREA NITROGEN) 16 MG/DL (6-23); CALCIUM, SERUM 8.4 MG/DL (8.5-10.4); CHLORIDE, SERUM 108 MMOL/L (96-112); CO2 (CARBON DIOXIDE) 24 MMOL/L (24-34); CREATININE 1.04 MG/DL (0.70-1.30); GFR AFRICAN AMERICAN 86 ML/MIN (>=60); GFR NON AFRICAN AMERICAN 74 ML/MIN (>=60); GLUCOSE, SERUM 120 MG/DL (60-99); POTASSIUM, SERUM 3.4 MMOL/L (3.5-5.3)
[2016-07-15 04:08] LABS: SODIUM, SERUM 144 MMOL/L (135-148)
[2016-07-16 04:17] LABS: BASOPHILS 0.1 %; BASOPHILS ABSOLUTE 0.01 10/3/uL (0.0-0.16); EOSINOPHILS 1.4 %; HEMATOCRIT 35.8 % (40.0-51.0); HEMOGLOBIN 11.9 g/dL (13.6-17.8); IMMATURE GRANULOCYTES 0.3 %; IMMATURE GRANULOCYTES ABSOLUTE 0.02 10/3/uL (0.0-0.11); LYMPHOCYTES 19.2 %; LYMPHOCYTES ABSOLUTE 1.36 10/3/uL (0.67-4.30); MEAN CORPUS HGB CONC 33.2 g/dL (32.0-36.0); MEAN CORPUSCULAR VOLUME 99.2 fL (80-100); MEAN PLATELET VOLUME 11.6 fL (9.2-13.0); MONOCYTES 12.6 %; MONOCYTES ABSOLUTE 0.89 10/3/uL (0.21-1.20); NEUTROPHILS 66.4 %; NEUTROPHILS ABSOLUTE 4.71 10/3/uL (2.02-8.40); PLATELET COUNT 120 10/3/uL (150-400); RBC DISTRIBUTION WIDTH 17.6 % (12.0-16.0); RED CELL COUNT 3.61 10/6/uL (4.7-6.1); WHITE BLOOD CELLS 7.1 10/3/uL (4.5-10.5)
[2016-07-16 04:18] LABS: MANUAL DIFF NO %
[2016-07-16 04:33] LABS: A/G RATIO 0.8 (0.7-1.9); ALBUMIN 2.5 G/DL (3.5-5.0); ALKALINE PHOSPHATASE 83 U/L (45-117); BUN (BLOOD UREA NITROGEN) 16 MG/DL (6-23); CALCIUM, SERUM 8.4 MG/DL (8.5-10.4); CHLORIDE, SERUM 108 MMOL/L (96-112); CO2 (CARBON DIOXIDE) 24 MMOL/L (24-34); CREATININE 0.76 MG/DL (0.70-1.30); GFR AFRICAN AMERICAN 110 ML/MIN (>=60); GFR NON AFRICAN AMERICAN 95 ML/MIN (>=60); GLUCOSE, SERUM 97 MG/DL (60-99); SGOT(AST) 30 U/L (5-40); SGPT(ALT) 24 U/L (5-65); SODIUM, SERUM 142 MMOL/L (135-148); TOTAL PROTEIN 5.5 G/DL (6.0-8.5)
[2016-07-16 04:34] LABS: POTASSIUM, SERUM 4.2 MMOL/L (3.5-5.3); TOTAL BILIRUBIN 0.9 MG/DL (0-1.2)
[2016-07-17 07:09] LABS: BUN (BLOOD UREA NITROGEN) 15 MG/DL (6-23); CALCIUM, SERUM 8.4 MG/DL (8.5-10.4); CHLORIDE, SERUM 108 MMOL/L (96-112); CREATININE 0.71 MG/DL (0.70-1.30); GFR AFRICAN AMERICAN 113 ML/MIN (>=60); GFR NON AFRICAN AMERICAN 98 ML/MIN (>=60); GLUCOSE, SERUM 108 MG/DL (60-99); POTASSIUM, SERUM 3.7 MMOL/L (3.5-5.3); SODIUM, SERUM 144 MMOL/L (135-148)
[2016-07-17 07:10] LABS: CO2 (CARBON DIOXIDE) 29 MMOL/L (24-34)
[2016-07-18 06:11] LABS: BUN (BLOOD UREA NITROGEN) 13 MG/DL (6-23); CALCIUM, SERUM 8.5 MG/DL (8.5-10.4); CHLORIDE, SERUM 109 MMOL/L (96-112); CO2 (CARBON DIOXIDE) 29 MMOL/L (24-34); CREATININE 0.74 MG/DL (0.70-1.30); GFR AFRICAN AMERICAN 111 ML/MIN (>=60); GFR NON AFRICAN AMERICAN 96 ML/MIN (>=60); GLUCOSE, SERUM 105 MG/DL (60-99); SODIUM, SERUM 143 MMOL/L (135-148)
[2016-07-19] MEDS ORDERED: KDUR20 PO (12:52)
[2016-09-05] MEDS ORDERED: COREG6 PO (22:48)
[2016-09-05] MEDS ORDERED: MULTIVIT/MIN PO (22:48)
[2016-09-05] MEDS ORDERED: ASAB PO (22:48)
[2016-09-05] MEDS ORDERED: DSS PO (22:49)
[2016-09-05] MEDS ORDERED: LAN25 PO (22:49)
[2016-09-05] MEDS ORDERED: NORCO1 TA1 PO (22:50)
[2016-09-05] MEDS ORDERED: CONSTULOSE PO (22:50)
[2016-09-05] MEDS ORDERED: NEUR300 PO (22:50)
[2016-09-05] MEDS ORDERED: PRIN5 PO (22:55)
[2016-09-05] MEDS ORDERED: ATV.5 PO (22:56)
[2016-09-05] MEDS ORDERED: MICRO-K10 MEQ PO (22:57)
[2016-09-05] MEDS ORDERED: DEMA10T PO (23:01)
[2016-09-05] MEDS ORDERED: XARELTO20 MG PO (23:18)
[2016-09-05] MEDS ORDERED: MSCONT15 PO (23:21)
== END 2016-07-19 13:25 | disposition home or self-care (01) | DRG 291 ==
LOC: ER 01:09 → 5NO 03:15
PROVIDERS: Family Medicine; Hospitalist; Internal Medicine; Specialist
DX: I50.23 Acute on chronic systolic (congestive) heart failure (principal); J96.01 Acute respiratory failure with hypoxia; J44.9 Chronic obstructive pulmonary disease, unspecified; I48.91 Unspecified atrial fibrillation; F32.9 Major depressive disorder, single episode, unspecified; F41.9 Anxiety disorder, unspecified; Z88.0 Allergy status to penicillin; F10.20 Alcohol dependence, uncomplicated; Z59.0 Homelessness
CPT/HCPCS: 71010; 71020; 80048; 80053; 80076; 82550; 82553; 83735; 83880; 84443; 84484; 85025; 85610; 85730; 87040; 87150; 93005; 96374; 97116-GP; 97161-GP; 99285; A9270-GY; G8978-CJ-GP; G8979-CH-GP; J1940

== ENCOUNTER 2016-08-07 20:32 | Inpatient (IN) | payer MEDICARE, OTHER ==
--- NOTE | ~2016-08-07 | HP ---
History And Physical [address] [address] NAME: QUYNH ARAIZA : 50 STATUS : ADM IN PAT#: [id number] AGE: 66 ADM/REG DATE : 08/07/16 MR#: [id number] REPORT SERV DATE: 08/08/16 DICTATED BY: ARIANE LAU DATE: 08/08/16 REPORT STATUS : Draft TRANSCRIBED BY: MODL DATE: 08/08/16 DATE OF ADMISSION: 08/07/2016 CHIEF COMPLAINT: A 66-year-old male with no primary care physician, now presenting with abdominal swelling and anasarca. HISTORY OF PRESENT ILLNESS: The patient's history was obtained through an interview with the patient, coupled with review of [facility] medical records. The patient states that around 08/03/2016 he began to notice increasing swelling. The swelling was mostly in his abdomen, slightly in his pelvic area, and then he felt as if he had fluid accumulating in his lungs as well. He describes abdominal pain, a full diffuse aching discomfort, 6/10 severity. He also has had a headache, also diffusely felt a quality "like something has been blown off," 8/10 severity. He has also developed a slight chest discomfort, a squeezing quality exacerbated by exertion and is associated with shortness of breath with a 6/10 severity. The patient has had dizziness and lightheadedness. No orthopnea. No paroxysmal nocturnal dyspnea. He has had nausea, but no vomiting. No fevers or chills. No diarrhea. REVIEW OF SYSTEMS: Otherwise, a 14-point review of systems was obtained and was negative. PAST MEDICAL HISTORY: 1. Systolic congestive heart failure. Ejection fraction 15%. 2. Pneumonia in April 2016. 3. COPD by CT scan. 4. AICD/pacer placement. 5. Atrial fibrillation. 6. Alcoholism. 7. Neuropathy. 8. Depression and anxiety. 9. Hypertension. PAST SURGICAL HISTORY: 1. AICD/pacer placement. 2. Knee surgery. 3. Hip surgery. ALLERGIES: TO PENICILLIN. History And Physical [address] [address] NAME: QUYNH ARAIZA : 50 STATUS : ADM IN PAT#: [id number] AGE: 66 ADM/REG DATE : 08/07/16 MR#: [id number] REPORT SERV DATE: 08/08/16 DICTATED BY: ARIANE LAU DATE: 08/08/16 REPORT STATUS : Draft TRANSCRIBED BY: JULIANN DATE: 08/08/16 SOCIAL HISTORY: No tobacco abuse. Drinks occasional alcohol. Smokes marijuana. He is homeless, living in a motel. He has four children. FAMILY HISTORY: Coronary artery disease. CURRENT MEDICATIONS: 1. Aspirin 81 mg daily. 2. Coreg 6.25 mg p.o. b.i.d. 3. Digoxin 0.25 mg p.o. daily. 4. Neurontin 300 mg p.o. b.i.d. 5. Lisinopril 5 mg p.o. daily. 6. Multivitamin daily. 7. Xarelto 20 mg p.o. daily. 8. Demadex 10 mg p.o. daily. PHYSICAL EXAMINATION: VITAL SIGNS: Temperature 98.2, pulse 92, blood pressure 84/64, respiratory rate 10, and O2 saturation 98% on room air. GENERAL: An ill-appearing male, in evidence of some distress secondary to discomfort from mostly abdominal distention and swelling. HEENT: Pupils equal, round, and reactive to light. No conjunctival pallor. No scleral icterus. Nares are patent. Oropharynx is clear of obstruction. Moist mucous membranes. NECK: Trachea midline. No thyromegaly. LYMPH: No cervical lymphadenopathy. No supraclavicular lymphadenopathy. RESPIRATORY: The patient has wet rales at the base of lungs. No wheezes. No rhonchi. Labored respiratory effort. CARDIOVASCULAR: Regular rate and rhythm. No murmurs, rubs, or gallops. No current extremity edema is appreciated, but he does have these chronic severe looking varicose veins that are quite distended as if congested. ABDOMEN: Quite distended by exam with positive fluid wave, tender throughout, but nonfocal. No rebound. No guarding. No hepatosplenomegaly. DERMATOLOGICAL: Warm and dry extremities. No pallor. No cyanosis. PSYCHIATRIC: Normal affect. Good mood. Alert and oriented x3. LABORATORY DATA: White blood cell count 5.1, hemoglobin 12, hematocrit 35, and platelets 133. Sodium 139, potassium 3.6, chloride 107, bicarb 25, BUN 16, creatinine 1.15, and glucose 112. Brain natriuretic peptide 3122. Albumin 2.8. Troponin negative. INR 3.7. AST 23, ALT 16, alkaline phosphatase 100, and total bilirubin 1.9. STUDIES: 1. Chest x-ray by my own evaluation shows increasing cardiomegaly, in fact his History And Physical [address] [address] NAME: QUYNH ARAIZA : 50 STATUS : ADM IN PAT#: [id number] AGE: 66 ADM/REG DATE : 08/07/16 MR#: [id number] REPORT SERV DATE: 08/08/16 DICTATED BY: ARIANE LAU DATE: 08/08/16 REPORT STATUS : Draft TRANSCRIBED BY: MODL DATE: 08/08/16 cardiomegaly is quite pronounced and increased compared to an old x-ray. He also has pulmonary vascular congestion. 2. EKG by my own evaluation shows frequent premature ventricular contractions. ASSESSMENT AND PLAN: 1. Anasarca. I would like to start the patient on IV Bumex drip. Also I would like to recheck an echocardiogram because of increasing cardiomegaly to rule out a condition such as pericardial effusion? 2. Acute systolic congestive heart failure. Ejection fraction 15%. Hold MORGAN inhibitor and Coreg secondary to hypotension now. 3. Shock, that is apparently symptomatic. We will be holding cardiac medications such as MORGAN inhibitor and Coreg, and try IV albumin. 4. Alcoholism. 5. Abdominal distention. Check an ultrasound of the abdomen to rule out significant ascites and may consider paracentesis? 6. Atrial fibrillation. Check telemetry. 7. Chronic obstructive pulmonary disease. KPL/MODL Ariane Lau M.D. / [id number] CC: Dewey Ceballos MD
[~2016-08-07 20:32] MED LIST changes: +KDUR20 PO
[2016-08-07 21:12] LABS: BASOPHILS 0.6 %; BASOPHILS ABSOLUTE 0.03 10/3/uL (0.0-0.16); EOSINOPHILS 1.4 %; EOSINOPHILS ABSOLUTE 0.07 10/3/uL (0.0-0.53); ER CBC TAT 0 Hrs 07 Mins; HEMATOCRIT 35.2 % (40.0-51.0); HEMOGLOBIN 11.7 g/dL (13.6-17.8); IMMATURE GRANULOCYTES 0.2 %; IMMATURE GRANULOCYTES ABSOLUTE 0.01 10/3/uL (0.0-0.11); LYMPHOCYTES 26.3 %; LYMPHOCYTES ABSOLUTE 1.34 10/3/uL (0.67-4.30); MEAN CORPUS HGB CONC 33.2 g/dL (32.0-36.0); MEAN CORPUSCULAR HEMOGLOB 31.8 pg (26.0-34.0); MEAN PLATELET VOLUME 10.9 fL (9.2-13.0); MONOCYTES 9.2 %; MONOCYTES ABSOLUTE 0.47 10/3/uL (0.21-1.20); NEUTROPHILS 62.3 %; NEUTROPHILS ABSOLUTE 3.17 10/3/uL (2.02-8.40); PLATELET COUNT 133 10/3/uL (150-400); RBC DISTRIBUTION WIDTH 15.9 % (12.0-16.0); RED CELL COUNT 3.68 10/6/uL (4.7-6.1); WHITE BLOOD CELLS 5.1 10/3/uL (4.5-10.5)
[2016-08-07 21:13] LABS: MANUAL DIFF NO %; MEAN CORPUSCULAR VOLUME 95.7 fL (80-100)
[2016-08-07 21:28] LABS: A/G RATIO 0.9 (0.7-1.9); ALBUMIN 2.8 G/DL (3.5-5.0); BUN (BLOOD UREA NITROGEN) 16 MG/DL (6-23); CALCIUM, SERUM 7.8 MG/DL (8.5-10.4); CHLORIDE, SERUM 107 MMOL/L (96-112); CO2 (CARBON DIOXIDE) 25 MMOL/L (24-34); CREATININE 1.15 MG/DL (0.70-1.30); GFR AFRICAN AMERICAN 76 ML/MIN (>=60); GFR NON AFRICAN AMERICAN 66 ML/MIN (>=60); GLUCOSE, SERUM 112 MG/DL (60-99); POTASSIUM, SERUM 3.6 MMOL/L (3.5-5.3); SGPT(ALT) 16 U/L (5-65); SODIUM, SERUM 139 MMOL/L (135-148); TOTAL PROTEIN 5.8 G/DL (6.0-8.5); TROPONIN I 0.02 NG/ML (<0.05)
[2016-08-07 21:29] LABS: ACETAMINOPHEN LEVEL (TYLENOL) < 2.0 MCG/ML (10.0-20.0); ALKALINE PHOSPHATASE 100 U/L (45-117); SGOT(AST) 23 U/L (5-40); TOTAL BILIRUBIN 1.9 MG/DL (0-1.2)
[2016-08-07 21:30] LABS: ALCOHOL < 10 MG/DL (0); SALICYLATE < 1.7 MG/DL (-)
[2016-08-07 21:47] LABS: INTERNATIONAL NORMAL RATI 3.7 UNITS (-); PARTIAL THROMBO TIME 43.9 SEC (22.5-37.2); PROTIME (NOT ORD) 36.5 SEC (12.0-14.5)
[2016-08-07] MEDS ORDERED: HALF81 PO (22:04)
[2016-08-07] MEDS ORDERED: MULTIVITAMI1 PO (22:06)
[2016-08-07] MEDS ORDERED: PRIN5 PO (22:07)
[2016-08-07] MEDS ORDERED: NEUR300 PO (22:08)
[2016-08-07] MEDS ORDERED: LAN25 PO (22:08)
[2016-08-07] MEDS ORDERED: DEMA10T PO (22:09)
[2016-08-07] MEDS ORDERED: COREG6 PO (22:09)
[2016-08-07] MEDS ORDERED: XARELTO20 MG PO (22:09)
[2016-08-07 23:09] LABS: AMPHETAMINES (NOT ORD) NEG (NEG); BARBITURATES (NOT ORDERED NEG (NEG); BENZODIAZEPINES (NOT ORD) NEG (NEG); CANNABINOIDS (THC) NEG (NEG); COCAINE (NOT ORDERED) NEG (NEG); OPIATES NEG (NEG); PHENCYCLIDINE(PCP) NEG (NEG); TRICYCLICS NEG (NEG)
[2016-08-08 06:14] LABS: BASOPHILS 0.6 %; BASOPHILS ABSOLUTE 0.03 10/3/uL (0.0-0.16); EOSINOPHILS 1.2 %; EOSINOPHILS ABSOLUTE 0.06 10/3/uL (0.0-0.53); HEMATOCRIT 36.2 % (40.0-51.0); HEMOGLOBIN 12.2 g/dL (13.6-17.8); IMMATURE GRANULOCYTES 0.2 %; IMMATURE GRANULOCYTES ABSOLUTE 0.01 10/3/uL (0.0-0.11); LYMPHOCYTES 28.9 %; LYMPHOCYTES ABSOLUTE 1.49 10/3/uL (0.67-4.30); MEAN CORPUS HGB CONC 33.7 g/dL (32.0-36.0); MEAN CORPUSCULAR HEMOGLOB 32.7 pg (26.0-34.0); MEAN CORPUSCULAR VOLUME 97.1 fL (80-100); MEAN PLATELET VOLUME 11.4 fL (9.2-13.0); MONOCYTES 8.2 %; MONOCYTES ABSOLUTE 0.42 10/3/uL (0.21-1.20); NEUTROPHILS 60.9 %; NEUTROPHILS ABSOLUTE 3.14 10/3/uL (2.02-8.40); PLATELET COUNT 122 10/3/uL (150-400); RBC DISTRIBUTION WIDTH 15.9 % (12.0-16.0); RED CELL COUNT 3.73 10/6/uL (4.7-6.1); WHITE BLOOD CELLS 5.2 10/3/uL (4.5-10.5)
[2016-08-08 06:16] LABS: MANUAL DIFF NO %
[2016-08-08 06:17] LABS: INTERNATIONAL NORMAL RATI 2.6 UNITS (-); PARTIAL THROMBO TIME 38.7 SEC (22.5-37.2)
[2016-08-08 06:28] LABS: PROTIME (NOT ORD) 27.5 SEC (12.0-14.5)
[2016-08-08 06:34] LABS: A/G RATIO 1.1 (0.7-1.9); ALBUMIN 3.3 G/DL (3.5-5.0); ALKALINE PHOSPHATASE 98 U/L (45-117); BUN (BLOOD UREA NITROGEN) 18 MG/DL (6-23); CALCIUM, SERUM 8.6 MG/DL (8.5-10.4); CHLORIDE, SERUM 105 MMOL/L (96-112); CO2 (CARBON DIOXIDE) 25 MMOL/L (24-34); CREATININE 1.12 MG/DL (0.70-1.30); GFR AFRICAN AMERICAN 79 ML/MIN (>=60); GFR NON AFRICAN AMERICAN 68 ML/MIN (>=60); GLOBULIN 3.1 G/DL (2.5-4.1); GLUCOSE, SERUM 96 MG/DL (60-99); POTASSIUM, SERUM 3.2 MMOL/L (3.5-5.3); SGOT(AST) 18 U/L (5-40); SGPT(ALT) 16 U/L (5-65); SODIUM, SERUM 141 MMOL/L (135-148); TOTAL BILIRUBIN 1.7 MG/DL (0-1.2); TOTAL PROTEIN 6.4 G/DL (6.0-8.5); TROPONIN I 0.02 NG/ML (<0.05)
[2016-08-09 06:17] LABS: BASOPHILS 0.4 %; BASOPHILS ABSOLUTE 0.03 10/3/uL (0.0-0.16); EOSINOPHILS 1.5 %; HEMATOCRIT 37.1 % (40.0-51.0); HEMOGLOBIN 12.4 g/dL (13.6-17.8); IMMATURE GRANULOCYTES 0.1 %; IMMATURE GRANULOCYTES ABSOLUTE 0.01 10/3/uL (0.0-0.11); LYMPHOCYTES 27.9 %; LYMPHOCYTES ABSOLUTE 1.87 10/3/uL (0.67-4.30); MEAN CORPUS HGB CONC 33.4 g/dL (32.0-36.0); MEAN CORPUSCULAR HEMOGLOB 32.5 pg (26.0-34.0); MEAN CORPUSCULAR VOLUME 97.1 fL (80-100); MEAN PLATELET VOLUME 11.9 fL (9.2-13.0); MONOCYTES ABSOLUTE 0.54 10/3/uL (0.21-1.20); NEUTROPHILS 62.1 %; NEUTROPHILS ABSOLUTE 4.16 10/3/uL (2.02-8.40); PLATELET COUNT 142 10/3/uL (150-400); RBC DISTRIBUTION WIDTH 15.9 % (12.0-16.0); RED CELL COUNT 3.82 10/6/uL (4.7-6.1); WHITE BLOOD CELLS 6.7 10/3/uL (4.5-10.5)
[2016-08-09 06:20] LABS: MANUAL DIFF NO %
[2016-08-09 06:28] LABS: BUN (BLOOD UREA NITROGEN) 20 MG/DL (6-23); CALCIUM, SERUM 8.4 MG/DL (8.5-10.4); CHLORIDE, SERUM 103 MMOL/L (96-112); CO2 (CARBON DIOXIDE) 26 MMOL/L (24-34); CREATININE 1.09 MG/DL (0.70-1.30); GFR AFRICAN AMERICAN 82 ML/MIN (>=60); GFR NON AFRICAN AMERICAN 70 ML/MIN (>=60); POTASSIUM, SERUM 3.5 MMOL/L (3.5-5.3); SODIUM, SERUM 138 MMOL/L (135-148)
[2016-08-09 06:30] LABS: GLUCOSE, SERUM 119 MG/DL (60-99)
[2016-09-05] MEDS ORDERED: MULTIVIT/MIN PO (22:48)
[2016-09-05] MEDS ORDERED: COREG6 PO (22:48)
[2016-09-05] MEDS ORDERED: ASAB PO (22:48)
[2016-09-05] MEDS ORDERED: DSS PO (22:49)
[2016-09-05] MEDS ORDERED: LAN25 PO (22:49)
[2016-09-05] MEDS ORDERED: CONSTULOSE PO (22:50)
[2016-09-05] MEDS ORDERED: NEUR300 PO (22:50)
[2016-09-05] MEDS ORDERED: NORCO1 TA1 PO (22:50)
[2016-09-05] MEDS ORDERED: PRIN5 PO (22:55)
[2016-09-05] MEDS ORDERED: ATV.5 PO (22:56)
[2016-09-05] MEDS ORDERED: MICRO-K10 MEQ PO (22:57)
[2016-09-05] MEDS ORDERED: DEMA10T PO (23:01)
[2016-09-05] MEDS ORDERED: XARELTO20 MG PO (23:18)
[2016-09-05] MEDS ORDERED: MSCONT15 PO (23:21)
== END 2016-08-09 18:40 | disposition hospice, home (50) | DRG 292 ==
LOC: ER 20:32 → 2SO 23:35
PROVIDERS: Emergency Medicine; Hospitalist; Student in an Organized Health Care Education/Training Program
DX: I50.23 Acute on chronic systolic (congestive) heart failure (principal); R57.9 Shock, unspecified; J44.9 Chronic obstructive pulmonary disease, unspecified; I48.0 Paroxysmal atrial fibrillation; G62.9 Polyneuropathy, unspecified; F32.9 Major depressive disorder, single episode, unspecified; I10 Essential (primary) hypertension; Z51.5 Encounter for palliative care; F10.20 Alcohol dependence, uncomplicated; R51 Headache; Z66 Do not resuscitate; F41.9 Anxiety disorder, unspecified; F12.10 Cannabis abuse, uncomplicated; Z88.0 Allergy status to penicillin; Z82.49 Family history of ischemic heart disease and other diseases of the circulatory system; Z95.810 Presence of automatic (implantable) cardiac defibrillator
CPT/HCPCS: 71010; 76700; 80048; 80053; 80305; 80307; 83735; 83880; 84132; 84443; 84484; 85025; 85610; 85730; 93005; 93306; 99285; A9270-GY; P9047